=== PATIENT | female | born 1990 | race Two or more races ===

== ENCOUNTER 2025-08-04 01:34 | Emergency (ER) | payer OTHER ==
[~2025-08-04] VITALS: Ht 154.9 cm; Wt 131.1 kg
[2025-08-04] MEDS ORDERED: COZAAR25 MG PO (01:54)
[2025-08-04] MEDS ORDERED: SYNTHROID75 MCG PO (01:54)
[2025-08-04] MEDS ORDERED: BARIUM SULFATE 450 ML ORAL.SUSP PO ONE (03:21)
[2025-08-04 03:38] LABS: BASO % 0.2 % (0.1-1.2); EOS # 0.07 (0.04-0.54); EOS % 0.4 % (0.7-7.0); LYMPH # 1.22 (1.18-3.74); LYMPH % 7.3 % (19.3-53.1); MEAN PLATELET VOLUME 10.40 fl (9.4-12.4); MONO # 1.05 (0.24-0.82); MONO % 6.3 % (4.7-12.5); NEUT # 14.17 (1.56-6.13); NEUT % 85.4 % (34.0-71.1); RED CELL DISTRIBUTION WIDTH 18.6 % (11.6-14.4)
[2025-08-04] MEDS ORDERED: CIPROFLOXACIN IN 5 % DEXTROSE 400 MG/200 ML PIGGYBAG IV STA (04:11)
[2025-08-04] MEDS ORDERED: METRONIDAZOLE/SODIUM CHLORIDE 500 MG/100 ML PIGGYBACK IV STA (04:11)
[2025-08-04 04:30] LABS: URINE APPEARANCE Cloudy; URINE BILIRRUBIN Negative (NEGATIVE); URINE BLOOD Large; URINE COLOR Dark Yellow; URINE GLUCOSE Negative (NEGATIVE); URINE LEUKOCYTE Small; URINE NITRATE Negative; URINE PROTEIN 30 (NEGATIVE); URINE UROBILINOGEN 1.0 E.U./dl
[2025-08-04 04:33] LABS: URINE BACTERIA 126.0 uL (0.0-1933); URINE EPITHELIAL CELLS 12.3 uL (0.0-38.8); URINE RBC 1929.8 uL (0.0-20.8); URINE WBC 223.6 uL (0.0-23.2)
[2025-08-04 04:34] LABS: ALT/SGPT 21.0 U/L (12-78); AST/SGOT 38.0 U/L (15-37); BILIRUBIN TOTAL 0.39 mg/dL (0.3-1.2); BUN CREA RATIO 9.0 (7.0-25.0); CREATININE SERUM 0.75 mg/dL (0.55-1.02); GFR 87.43; GLOBULINA 4.6 G/DL (2.4-3.5); GLUCOSE FASTING 147.0 mg/dL (65-100); OSMOLALITY SERUM 280.0 MOSM/KG (275-295)
[2025-08-04] MEDS ORDERED: CIPROFLOXACIN IN 5 % DEXTROSE 400 MG/200 ML PIGGYBAG IV ONE (04:37)
[2025-08-04] MEDS ORDERED: METRONIDAZOLE/SODIUM CHLORIDE 500 MG/100 ML PIGGYBACK IV ONE (04:38)
[2025-08-04] MEDS ORDERED: KETOROLAC TROMETHAMINE 30 MG VIAL ONE (04:43)
[2025-08-04] MEDS ORDERED: KETOROLAC TROMETHAMINE 15 MG VIAL IV STA (04:45)
[2025-08-04 04:48] LABS: TYPE CELLS SQUAMOUS; URINE CAST 0.00 uL (0.0-1.40); URINE KETONE 80 (NEGATIVE)
[2025-08-04] MEDS ORDERED: POTASSIUM BICARBONATE/CIT AC 25 MEQ TABLET.EFF PO STA (05:19)
[2025-08-04] MEDS ORDERED: PIPERACILLIN/TAZOBACTAM SODIUM 3.375 GM in DEXTROSE 5 % IN WATER 100 ML IV SCH (09:48)
[2025-08-04] MEDS ORDERED: FAMOtidine 10 MG/ML (4ML VIAL) IV SCH (09:49)
[2025-08-04] MEDS ORDERED: 0.9 % SODIUM CHLORIDE 1,000 ML IV SCH (10:00)
[2025-08-04] MEDS ORDERED: PIPERACILLIN/TAZOBACTAM SODIUM 3.375 GM VIAL IV ONE (10:23)
[2025-08-04] MEDS ORDERED: FAMOTIDINE/PF 20 MG/2 ML VIAL ONE (10:23)
[2025-08-04 12:27] LABS: INR 1.14
== END 2025-08-04 12:19 | disposition home or self-care (01) ==
LOC: ER 01:34
PROVIDERS: General Practice
DX: R10.84 Generalized abdominal pain (principal); I10 Essential (primary) hypertension; Z91.040 Latex allergy status; Z88.8 Allergy status to other drugs, medicaments and biological substances; Z91.018 Allergy to other foods; D25.9 Leiomyoma of uterus, unspecified; K76.0 Fatty (change of) liver, not elsewhere classified